=== PATIENT | female | born 1950 | race Caucasian/White ===

== ENCOUNTER → 2016-10-12 | Outpatient (CLI) | END | disposition home or self-care (01) | DX: M25.551 Pain in right hip (principal); M17.0 Bilateral primary osteoarthritis of knee; I10 Essential (primary) hypertension; E78.00 Pure hypercholesterolemia, unspecified; M54.31 Sciatica, right side; M51.27 Other intervertebral disc displacement, lumbosacral region; M71.38 Other bursal cyst, other site; M46.96 Unspecified inflammatory spondylopathy, lumbar region; M46.97 Unspecified inflammatory spondylopathy, lumbosacral region ==